=== PATIENT | female | born 1995 | race Caucasian/White ===

== ENCOUNTER 2018-03-25 18:02 | Emergency (ER) | payer BC ==
[2018-03-25] MEDS ORDERED: ONDANSETRON 4 MG/2 ML VIAL IVP STA (19:30)
[2018-03-25] MEDS ORDERED: SODIUM CHLORIDE 0.9% 1,000 ML IV STA (19:30)
[2018-03-25] MEDS ORDERED: MORPHINE SULFATE 4 MG/0.8 ML SYRINGE (INJ) IVP STA (19:30)
--- NOTE | 2018-03-25 19:33 | ED ---
General Adult HPI - General Chief complaint: Abdominal Pain Stated complaint: abdominal and back pain Time Seen by Provider: 03/25/18 19:23 Source: patient, RN notes reviewed Mode of arrival: ambulatory Limitations: no limitations - History of Present Illness Initial comments: Patient 23-year-old female presented to emergency room today with a chief complaint of abdominal pain starting approximately 10:30 this morning. Patient states she was at work pain started all of a sudden she felt she needed to go to the bathroom. States she had a normal bowel movement. Sensation is had some symptoms of nausea. States that the symptoms seem to come in waves. She' s had periods where she feels that she is come close to passing out due to the pain. She states it's in the upper and lower abdomen with some radiation to the lower back. Patient states never had similar symptoms in the past. She denies any other complaints. Patient denies any recent fever, chills, shortness of breath, chest pain, numbness or tingling, dysuria or hematuria, constipation or diarrhea, headaches or visual changes, or any other complaints. - Related Data Home Medications Medication Instructions Recorded Confirmed Acetaminophen/Pyrilam/Pamabrom 1 tab PO TID PRN 03/25/18 03/25/18 [Pamprin Multi-Symptom Tab] Previous Rx's Medication Instructions Recorded Nitrofurantoin Monohyd/M-Cryst 100 mg PO Q12HR #14 cap 03/25/18 [Macrobid] Allergies Allergy/AdvReac Type Severity Reaction Status Date / Time quetiapine [From Seroquel] Allergy Rash/Hives Verified 03/25/18 20:07 Penicillins AdvReac Unknown Verified 03/25/18 20:07 Review of Systems ROS Statement: Those systems with pertinent positive or pertinent negative responses have been documented in the HPI. ROS Other: All systems not noted in ROS Statement are negative. Past Medical History Past Medical History: No Reported History History of Any Multi-Drug Resistant Organisms: None Reported Past Surgical History: No Surgical Hx Reported Past Psychological History: Bipolar Smoking Status: Former smoker Past Alcohol Use History: Occasional Past Drug Use History: Marijuana General Exam - General Exam Comments Initial Comments: General: The patient is awake and alert, in no distress, and does not appear acutely ill. Eye: Pupils are equal, round and reactive to light, extra-ocular movements are intact. No nystagmus. There is normal conjunctiva bilaterally. No signs of icterus. Ears, nose, mouth and throat: There are moist mucous membranes and no oral lesions. Neck: The neck is supple, there is no tenderness or JVD. Cardiovascular: There is a regular rate and rhythm. No murmur, rub or gallop is appreciated. Respiratory: Lungs are clear to auscultation, respirations are non-labored, breath sounds are equal. No wheezes, stridor, rales, or rhonchi. Gastrointestinal: Abdomen soft on palpation. Patient does have tenderness greatest in both the left and right upper quadrant and epigastric areas. Mild tenderness in both lower quadrants. No CVA tenderness. No guarding. No rebound tenderness. Musculoskeletal: Normal ROM, no tenderness. Strength 5/5. Sensation intact. Pulses equal bilaterally 2+. Neurological: A&O x 3. CN II-XII intact, There are no obvious motor or sensory deficits. Coordination appears grossly intact. Speech is normal. Skin: Skin is warm and dry and no rashes or lesions are noted. Psychiatric: Cooperative, appropriate mood & affect, normal judgment. Limitations: no limitations Course Vital Signs 03/25/18 18:22 Temperature 97.5 F L Pulse Rate 93 Respiratory 20 Rate Blood Pressure 118/71 O2 Sat by Pulse 100 Oximetry Medical Decision Making - Medical Decision Making Case discussed in detail with attending physician Dr. Soto. Patient reexamined at this time shows no signs of distress resting comfortably. Patient 's labs been reviewed does show elevated white count 28,000. Patient did have ultrasound of the gallbladder which was negative. Patient's test was positive. Patient's urinalysis does show evidence for infection. Patient will be started on antibiotics. Patient at this time doing well. Abdomen soft on palpation. Patient feeling comfortable with discharge. Patient advised follow FAMILY physician tomorrow for repeat blood work. Patient will also have a repeat beta hCG in the next 2 days. Patient is advised close follow-up return here to the emergency room for any symptoms increase or worsen. She states understanding and is in agreement. - Lab Data Result diagrams: 03/25/18 19:46 03/25/18 19:46 Lab Results 03/25/18 03/25/18 03/25/18 Range/Units 19:46 19:46 19:46 WBC 28.8 H* (3.8-10.6) k/uL RBC 4.08 (3.80-5.40) m/uL Hgb 12.3 (11.4-16.0) gm/dL Hct 35.9 (34.0-46.0) % MCV 88.1 (80.0-100.0) fL MCH 30.1 (25.0-35.0) pg MCHC 34.2 (31.0-37.0) g/dL RDW 12.5 (11.5-15.5) % Plt Count 506 H (150-450) k/uL Neutrophils % (Manual) 90 % Lymphocytes % (Manual) 9 % Monocytes % (Manual) 1 % Neutrophils # (Manual) 25.92 H (1.3-7.7) k/uL Lymphocytes # (Manual) 2.59 (1.0-4.8) k/uL Monocytes # (Manual) 0.29 (0-1.0) k/uL Nucleated RBCs 0 (0-0) /100 WBC Manual Slide Review Performed RBC Morphology Normal Sodium 138 (137-145) mmol/L Potassium 4.6 (3.5-5.1) mmol/L Chloride 101 (98-107) mmol/L Carbon Dioxide 19 L (22-30) mmol/L Anion Gap 18 mmol/L BUN 15 (7-17) mg/dL Creatinine 0.55 (0.52-1.04) mg/dL Est GFR (CKD-EPI)AfAm >90 (>60 ml/min/1.73 sqM) Est GFR (CKD-EPI)NonAf >90 (>60 ml/min/1.73 sqM) Glucose 120 H (74-99) mg/dL Calcium 9.8 (8.4-10.2) mg/dL Total Bilirubin 0.5 (0.2-1.3) mg/dL AST 28 (14-36) U/L ALT 28 (9-52) U/L Alkaline Phosphatase 51 (38-126) U/L Total Protein 7.6 (6.3-8.2) g/dL Albumin 4.8 (3.5-5.0) g/dL Amylase 43 (30-110) U/L Lipase 40 (23-300) U/L HCG, Quant 87.2 mIU/mL Urine Color Urine Appearance (Clear) Urine pH (5.0-8.0) Ur Specific Ford (1.001-1.035) Urine Protein (Negative) Urine Glucose (UA) (Negative) Urine Ketones (Negative) Urine Blood (Negative) Urine Nitrite (Negative) Urine Bilirubin (Negative) Urine Urobilinogen (<2.0) mg/dL Ur Leukocyte Esterase (Negative) Urine RBC (0-5) /hpf Urine WBC (0-5) /hpf Ur Squamous Epith Cells (0-4) /hpf Urine Bacteria (None) /hpf Urine Mucus (None) /hpf Urine HCG, Qual (Not Detectd) 03/25/18 03/25/18 Range/Units 20:20 20:20 WBC (3.8-10.6) k/uL RBC (3.80-5.40) m/uL Hgb (11.4-16.0) gm/dL Hct (34.0-46.0) % MCV (80.0-100.0) fL MCH (25.0-35.0) pg MCHC (31.0-37.0) g/dL RDW (11.5-15.5) % Plt Count (150-450) k/uL Neutrophils % (Manual) % Lymphocytes % (Manual) % Monocytes % (Manual) % Neutrophils # (Manual) (1.3-7.7) k/uL Lymphocytes # (Manual) (1.0-4.8) k/uL Monocytes # (Manual) (0-1.0) k/uL Nucleated RBCs (0-0) /100 WBC Manual Slide Review RBC Morphology Sodium (137-145) mmol/L Potassium (3.5-5.1) mmol/L Chloride (98-107) mmol/L Carbon Dioxide (22-30) mmol/L Anion Gap mmol/L BUN (7-17) mg/dL Creatinine (0.52-1.04) mg/dL Est GFR (CKD-EPI)AfAm (>60 ml/min/1.73 sqM) Est GFR (CKD-EPI)NonAf (>60 ml/min/1.73 sqM) Glucose (74-99) mg/dL Calcium (8.4-10.2) mg/dL Total Bilirubin (0.2-1.3) mg/dL AST (14-36) U/L ALT (9-52) U/L Alkaline Phosphatase (38-126) U/L Total Protein (6.3-8.2) g/dL Albumin (3.5-5.0) g/dL Amylase (30-110) U/L Lipase (23-300) U/L HCG, Quant mIU/mL Urine Color Yellow Urine Appearance Cloudy H (Clear) Urine pH 6.0 (5.0-8.0) Ur Specific Ford 1.029 (1.001-1.035) Urine Protein 1+ H (Negative) Urine Glucose (UA) Negative (Negative) Urine Ketones Negative (Negative) Urine Blood Moderate H (Negative) Urine Nitrite Positive H (Negative) Urine Bilirubin Negative (Negative) Urine Urobilinogen <2.0 (<2.0) mg/dL Ur Leukocyte Esterase Small H (Negative) Urine RBC 2 (0-5) /hpf Urine WBC 18 H (0-5) /hpf Ur Squamous Epith Cells 33 H (0-4) /hpf Urine Bacteria Many H (None) /hpf Urine Mucus Many H (None) /hpf Urine HCG, Qual Detected (Not Detectd) Disposition Clinical Impression: UTI (urinary tract infection), Positive test, Abdominal pain Disposition: HOME SELF-CARE Condition: Good Instructions: Abdominal Pain (ED) Additional Instructions: Please use medication as discussed. Please follow-up with family doctor in the next tomorrow. Please return to emergency room if the symptoms increase or worsen or for any other concerns. Prescriptions: Nitrofurantoin Monohyd/M-Cryst [Macrobid] 100 mg PO Q12HR #14 cap Is patient prescribed a controlled substance at d/c from ED?: No Referrals: Sylvain Khoury MD [Primary Care Provider] - 1-2 days Time of Disposition: 23:31
[2018-03-25 20:08] LABS: ALT 28 U/L (9-52); AST 28 U/L (14-36); Albumin 4.8 g/dL (3.5-5.0); Alkaline Phosphatase 51 U/L (38-126); Amylase 43 U/L (30-110); Anion Gap 18 mmol/L; Blood Urea Nitrogen 15 mg/dL (7-17); Calcium 9.8 mg/dL (8.4-10.2); Carbon Dioxide 19 mmol/L (22-30); Chloride 101 mmol/L (98-107); Glucose 120 mg/dL (74-99); Lipase 40 U/L (23-300); Potassium 4.6 mmol/L (3.5-5.1); Sodium 138 mmol/L (137-145); Total Bilirubin 0.5 mg/dL (0.2-1.3); Total Protein 7.6 g/dL (6.3-8.2)
[2018-03-25 20:11] LABS: HCT 35.9 % (34.0-46.0); HGB 12.3 gm/dL (11.4-16.0); MCH 30.1 pg (25.0-35.0); MCHC 34.2 g/dL (31.0-37.0); MCV 88.1 fL (80.0-100.0); Mean Platelet Volume 7.6; Platelet Count 506 k/uL (150-450); RBC 4.08 m/uL (3.80-5.40); RDW 12.5 % (11.5-15.5)
[2018-03-25 20:15] LABS: WBC 28.8 k/uL (3.8-10.6)
[2018-03-25 20:34] LABS: Appearance,Urine Cloudy (Clear); Bacteria,Urine Many /hpf; Bilirubin,Urine Negative (Negative); Blood,Urine Moderate (Negative); Color,Urine Yellow; Glucose,Urine (UA) Negative (Negative); Ketones,Urine Negative (Negative); Leukocyte Esterase,Urine Small (Negative); Mucus,Urine Many /hpf; Nitrite,Urine Positive (Negative); Protein,Urine 1+ (Negative); RBC,Urine 2 /hpf (0-5); Specific Gravity,Urine 1.029 (1.001-1.035); Squamous Epithelial Cell,Urine 33 /hpf (0-4); Urobilinogen,Urine <2.0 mg/dL (<2.0); WBC,Urine 18 /hpf (0-5)
[2018-03-25 20:40] LABS: Lymphocytes # (M) 2.59 k/uL (1.0-4.8); Monocytes # (M) 0.29 k/uL (0-1.0); Neutrophils # (M) 25.92 k/uL (1.3-7.7); Neutrophils % (M) 90 %; Nucleated Red Blood Cells 0 /100 WBC (0-0); Total Cells Counted 100
--- NOTE | 2018-03-25 21:25 | US ---
EXAMINATION TYPE: Transabdominal DATE OF EXAM: 03/04/18 COMPARISON: NONE CLINICAL HISTORY: Pain. pain EXAM PERFORMED: Transabdominal (TA) Patient refused transvaginal exam. EXAM MEASUREMENTS: GESTATIONAL AGE / DATING Physician Established: Not yet established Dates by LMP: (1 weeks/0 days) EDC: 12/23/2018 Dates by First Scan: No previous this is first scan Dates by Current Scan for: (1 weeks/0 days) EDC: 12/23/2017 MATERNAL ANATOMY Uterus: 7.6 x 3.3 x 3.6 cm Post CDS / Adnexa: Excessive bowel seen Presence of free fluid: Yes GESTATION / SURVEY IUP: No IUP seen at this time Date of LMP: 03/18/2018 Beta HcG (if available): Detected No IUP seen at this time. IMPRESSION: There is a small amount of free fluid in the pelvis. No evidence of intrauterine gestational sac. No adnexal mass.
--- NOTE | 2018-03-25 23:21 | US ---
EXAMINATION TYPE: US gallbladder DATE OF EXAM: 03/25/2018 COMPARISON: NONE CLINICAL HISTORY: Pain. RUQ pain EXAM MEASUREMENTS: Liver Length: 16.9 cm Gallbladder Wall: 0.3 cm CBD: 0.5 cm Right Kidney: 12.0 x 3.9 x 4.8 cm Pancreas: Obscured by bowel gas Liver: wnl Gallbladder: wnl Evidence for sonographic Maxwell's sign: No CBD: wnl Right Kidney: No hydronephrosis or masses seen IMPRESSION: Normal right upper quadrant abdominal sonogram. No gallstones or dilated ducts.
[2018-03-26 00:04] VITALS: BP 133/80; PULSE 97; RESP 16; TEMP 98.3
== END 2018-03-26 00:04 | disposition home or self-care (01) ==
LOC: EC 18:02
DX: N39.0 Urinary tract infection, site not specified (principal); R10.12 Left upper quadrant pain; R10.13 Epigastric pain; R10.11 Right upper quadrant pain; R10.31 Right lower quadrant pain; R10.32 Left lower quadrant pain; Z32.01 Encounter for pregnancy test, result positive; Z87.891 Personal history of nicotine dependence; Z88.0 Allergy status to penicillin; Z88.8 Allergy status to other drugs, medicaments and biological substances
CPT/HCPCS: 36415; 80053; 82150; 83690; 85025; 81001; 81025; 84702; 76801; 76705; 99284; 96374; 96375; 96361; J2405; J2270

== ENCOUNTER 2018-03-28 18:49 | Emergency (ER) | payer BC ==
[2018-03-28] MEDS ORDERED: SODIUM CHLORIDE 0.9% 1,000 ML IV STA (19:26)
--- NOTE | 2018-03-28 20:16 | XR ---
History epigastric pain. Comparison none. Technique 2 views. FINDINGS: Bowel gas pattern is normal. There is no sign of intestinal obstruction or pneumoperitoneum. Fecal pa ttern is normal. There is no sign of a mass. Lung bases are clear. There are no pathologic calcificat ions. CONCLUSION: Nonacute abdomen.
--- NOTE | 2018-03-28 20:26 | ED ---
Abdominal Pain HPI - General Chief Complaint: Abdominal Pain Stated Complaint: Abd Pain Time Seen by Provider: 03/28/18 19:10 Source: patient Mode of arrival: ambulatory Limitations: no limitations - History of Present Illness Initial Comments: Patient is a 23-year-old female presenting for abdominal pain. She states that it is been going on for approximately the last week and is located in the epigastric as well as suprapubic region feels like a constant sensation, comes in waves and is better when she burps. She states that it feels like a charley horse in that she was seen here on March 25 when they did testing. She was tested positive for at that time and had a beta hCG. She states that she continues to have nausea but no vomiting or diarrhea or urinary complaints as well as vaginal bleeding in that she saw her family doctor today when they repeated a beta hCG. The doctor told the patient that the beta hCG was down trending but wanted to hurt her evaluated for possible ectopic. . - Related Data Home Medications Medication Instructions Recorded Confirmed Acetaminophen Tab [Tylenol Tab] 500 - 1,000 mg PO Q6HR PRN 03/28/18 03/28/18 Simethicone [Gas-X] 125 mg PO ONCE PRN 03/28/18 03/28/18 Previous Rx's Medication Instructions Recorded Nitrofurantoin Monohyd/M-Cryst 100 mg PO Q12HR #14 cap 03/25/18 [Macrobid] Allergies Allergy/AdvReac Type Severity Reaction Status Date / Time quetiapine [From Seroquel] Allergy Rash/Hives Verified 03/28/18 19:32 Penicillins AdvReac Unknown Verified 03/28/18 19:32 Review of Systems ROS Statement: Those systems with pertinent positive or pertinent negative responses have been documented in the HPI. Constitutional: Negative for chills, fatigue and fever. HENT: Negative for congestion. Respiratory: Negative for chest tightness, shortness of breath and wheezing. Cardiovascular: Negative for chest pain and palpitations. Gastrointestinal: Positive for abdominal pain. Negative for abdominal distention , diarrhea, and vomiting. Positive for nausea Genitourinary: Negative for dysuria. Negative for vaginal bleeding Musculoskeletal: Negative for back pain, neck pain and neck stiffness. Skin: Negative for color change. Neurological: Negative for dizziness, speech difficulty, weakness and light- headedness. Psychiatric/Behavioral: Negative for agitation and confusion. The patient is not nervous/anxious. ROS Other: All systems not noted in ROS Statement are negative. Past Medical History Past Medical History: No Reported History History of Any Multi-Drug Resistant Organisms: None Reported Past Surgical History: No Surgical Hx Reported Past Psychological History: Bipolar Smoking Status: Former smoker Past Alcohol Use History: Occasional Past Drug Use History: Marijuana General Exam - General Exam Comments Initial Comments: Physical Exam Constitutional: Pt is oriented to person, place, and time. Pt appears well- developed and well-nourished. No distress. HENT: Head: Normocephalic and atraumatic. Eyes: EOM are normal. Neck: Normal range of motion. Neck supple. Cardiovascular: Normal rate, regular rhythm, S1 normal, S2 normal and normal heart sounds. Exam reveals no gallop and no friction rub. No murmur heard. Pulmonary/Chest: Effort normal and breath sounds normal. No tachypnea and no bradypnea. No respiratory distress. No wheezes or rales noted. Abdominal: Soft. Bowel sounds are normal. Pt exhibits no shifting dullness, no distension, no pulsatile liver, no fluid wave, no abdominal bruit and no ascites. There is no tenderness. There is no rigidity, no rebound, no guarding, no tenderness at McBurney's point and negative Maxwell's sign. Musculoskeletal: Normal range of motion. Neurological: Pt is alert and oriented to person, place, and time. No cranial nerve deficit. Skin: Skin is warm and dry. No rash noted. Pt is not diaphoretic. No erythema. No pallor. Psychiatric: Pt has a normal mood and affect. Pt behavior is normal. Thought content normal. Limitations: no limitations Course Vital Signs 03/28/18 03/28/18 18:53 20:41 Temperature 99.3 F 99.2 F Pulse Rate 100 98 Respiratory 16 18 Rate Blood Pressure 131/78 130/80 O2 Sat by Pulse 100 98 Oximetry Medical Decision Making - Medical Decision Making Extensive discussion was had with the patient and the mother in multiple occasions during her stay. Initially, the patient stated that she did not want to have blood work as she has a phobia to needle. It was then advised that she should at least have a pelvic exam to evaluate for adnexal tenderness. However , she declined as she did not want a male provider performing exam. She was advised that unfortunately there were no female providers that could perform this exam at the moment. However, she was agreeable to do a KUB which showed no evidence of acute pathology. In the end, the patient declined blood work as well as pelvic exam and it was explained to the patient and her mother that emergent pathology such as ectopic or torsion of the ovaries could not be excluded. Patient and mother expressed understanding that foregoing treatment and leaving AMA could result in or disability. Patient was again advised to follow-up with OB doctors to have serial beta hCG. They were agreeable to plan Disposition Clinical Impression: Abdominal pain Disposition: Left Against Medical Advice Condition: Fair Instructions: Abdominal Pain in (ED) Is patient prescribed a controlled substance at d/c from ED?: No Referrals: Sylvain Khoury MD [Primary Care Provider] - 1-2 days Lore Pardo DO [Doctor of Osteopathic Medicine] - 1-2 days Time of Disposition: 20:26
[2018-03-28 20:42] VITALS: BP 130/80; PULSE 98; RESP 18; TEMP 99.2
== END 2018-03-28 20:41 | disposition left against medical advice (07) ==
LOC: EC 18:49
DX: R10.9 Unspecified abdominal pain (principal); R11.0 Nausea; Z87.891 Personal history of nicotine dependence; Z88.0 Allergy status to penicillin; Z88.8 Allergy status to other drugs, medicaments and biological substances
CPT/HCPCS: 74018; 99284

== ENCOUNTER 2018-12-07 22:11 | Emergency (ER) | payer BC ==
[2018-12-07 22:35] VITALS: RESP 16
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
[2018-12-07 23:48] LABS: Amphetamine Screen,Urine Not Detected (NotDetected); Barbiturate Screen,Urine Not Detected (NotDetected); Benzodiazepines Screen,Urine Not Detected (NotDetected); Cocaine Screen,Urine Not Detected (NotDetected); Methadone Screen, Urine Not Detected (NotDetected); Opiate Screen,Urine Not Detected (NotDetected); Oxycodone Screen, Urine Not Detected (NotDetected); Phencyclidine Screen,Urine Not Detected (NotDetected); Tricyclic Antidepressant,Urine Not Detected (NotDetected); Urn Cannabinoid Scrn Detected (NotDetected)
[2018-12-08 02:03] VITALS: BP 120/73; PULSE 60; TEMP 97.8
== END 2018-12-08 02:03 | disposition home or self-care (01) ==
LOC: EC 22:11
DX: S51.811A Laceration without foreign body of right forearm, initial encounter (principal); F32.9 Major depressive disorder, single episode, unspecified; Z87.891 Personal history of nicotine dependence; Z79.3 Long term (current) use of hormonal contraceptives; Z79.899 Other long term (current) drug therapy; Z88.0 Allergy status to penicillin; Z88.8 Allergy status to other drugs, medicaments and biological substances; X78.8XXA Intentional self-harm by other sharp object, initial encounter
CPT/HCPCS: 80306; 81025; 82075; 99284

== ENCOUNTER → 2019-03-03 | Outpatient (CLI) | payer BC ==
--- NOTE | 2019-03-03 12:53 | US ---
EXAMINATION TYPE: US abdomen complete DATE OF EXAM: 03/03/2019 COMPARISON: US 03/25/2018 CLINICAL HISTORY: R11.2 NAUSEA AND VOMITING. Diarrhea and vomiting. Difficult exam due to overlying b owel gas EXAM MEASUREMENTS: Liver Length: 14.0 cm Gallbladder Wall: 0.2 cm CBD: 0.4 cm Spleen: 9.3 cm Right Kidney: 12.7 x 4.8 x 6.4 cm Left Kidney: 1.7 x 5.9 x 4.6 cm Pancreas: Obscured by bowel gas Liver: wnl Gallbladder: wnl Evidence for sonographic Maxwell's sign: No CBD: wnl Spleen: wnl Right Kidney: No hydronephrosis or masses seen Left Kidney: No hydronephrosis or masses seen Upper IVC: wnl Abd Aorta: Proximal portion obscured by bowel gas, visualized portions wnl The liver is homogenous. The intrahepatic portion of the IVC and proximal abdominal aorta are within normal limits. There is no evidence of cholelithiasis. Common bile duct is unremarkable. The splee n is unremarkable. Kidneys are symmetric and free of hydronephrosis. No renal lesions are seen. IMPRESSION: 1. No acute process.
== END | disposition home or self-care (01) ==
LOC: RADUSWWP 11:38
PROVIDERS: ATTEND Physician Assistant
DX: R11.2 Nausea with vomiting, unspecified (principal)
CPT/HCPCS: 76700

== ENCOUNTER 2019-04-29 18:27 | Emergency (ER) | payer BC ==
[2019-04-29 19:42] LABS: Appearance,Urine Clear (Clear); Bilirubin,Urine Negative (Negative); Blood,Urine Negative (Negative); Color,Urine Light Yellow; Glucose,Urine (UA) Negative (Negative); Ketones,Urine Negative (Negative); Leukocyte Esterase,Urine Negative (Negative); Nitrite,Urine Negative (Negative); Protein,Urine Negative (Negative); Specific Gravity,Urine 1.019 (1.001-1.035); Urobilinogen,Urine <2.0 mg/dL (<2.0)
[2019-04-29] MEDS ORDERED: MORPHINE SULFATE 4 MG/ML SYRINGE IVP STA (20:53)
[2019-04-29] MEDS ORDERED: ONDANSETRON 4 MG/2 ML VIAL IVP STA ×2 (20:53→21:29)
[2019-04-29] MEDS ORDERED: SODIUM CHLORIDE 0.9% 1,000 ML IV ONE (20:53)
[2019-04-29 21:03] LABS: Basophils # (A) 0.1 k/uL (0-0.2); Basophils % (A) 1 %; Eosinophils # (A) 0.3 k/uL (0-0.7); Eosinophils % (A) 3 %; HCT 39.5 % (34.0-46.0); HGB 13.1 gm/dL (11.4-16.0); Lymphocytes # (A) 4.1 k/uL (1.0-4.8); Lymphocytes % (A) 34 %; MCH 29.3 pg (25.0-35.0); MCHC 33.1 g/dL (31.0-37.0); MCV 88.6 fL (80.0-100.0); Mean Platelet Volume 7.3; Monocytes # (A) 0.7 k/uL (0-1.0); Monocytes % (A) 6 %; Neutrophils # (A) 6.6 k/uL (1.3-7.7); Neutrophils % (A) 56 %; Platelet Count 390 k/uL (150-450); RBC 4.46 m/uL (3.80-5.40); RDW 13.5 % (11.5-15.5); WBC 11.9 k/uL (3.8-10.6)
[2019-04-29 21:13] LABS: ALT 13 U/L (9-52); AST 21 U/L (14-36); Alkaline Phosphatase 46 U/L (38-126); Amylase 54 U/L (30-110); Anion Gap 14 mmol/L; Blood Urea Nitrogen 14 mg/dL (7-17); Calcium 9.9 mg/dL (8.4-10.2); Carbon Dioxide 21 mmol/L (22-30); Chloride 104 mmol/L (98-107); Glucose 78 mg/dL (74-99); Lipase 65 U/L (23-300); Potassium 4.5 mmol/L (3.5-5.1); Sodium 139 mmol/L (137-145); Total Bilirubin 0.4 mg/dL (0.2-1.3); Total Protein 8.3 g/dL (6.3-8.2)
--- NOTE | 2019-04-29 22:41 | ED ---
Abdominal Pain HPI - General Chief Complaint: Abdominal Pain Stated Complaint: Poss tubal Time Seen by Provider: 04/29/19 20:36 Source: patient Mode of arrival: ambulatory Limitations: no limitations - History of Present Illness Initial Comments: 24-year-old female patient presents to the emergency department today for evaluation of lower abdominal cramping radiating to both hips into her back. Patient states that this started about a week ago and has been progressively worsening. Patient denies any abnormal vaginal bleeding or discharge with this. States her last period was 02/27/2019. Patient states she has had negative test at home. States she does have a history of ectopic and states this feels similar. She denies any nausea or vomiting. Denies any constipation or diarrhea. She denies any fever or chills. She denies any hematuria, dysuria, urinary urgency, urinary frequency. Denies any history of abdominal surgery. Patient denies any recent rash, shortness breath, chest pain, numbness, tingling, dizziness, weakness, headache, visual changes, or any other complaints. - Related Data Home Medications Medication Instructions Recorded Confirmed Sertraline [Zoloft] 75 mg PO DAILY 12/07/18 04/29/19 Spironolactone 25 mg PO DAILY 04/29/19 04/29/19 l-Norgest/E.estradiol-E.estrad 1 tab PO DAILY 04/29/19 04/29/19 [Seasonique 0.15-0.03-0.01 Tab] Allergies Allergy/AdvReac Type Severity Reaction Status Date / Time Penicillins Allergy Rash/Hives Verified 04/29/19 20:45 quetiapine [From Seroquel] Allergy Rash/Hives Verified 04/29/19 20:45 Review of Systems ROS Statement: Those systems with pertinent positive or pertinent negative responses have been documented in the HPI. ROS Other: All systems not noted in ROS Statement are negative. Past Medical History Past Medical History: No Reported History Additional Past Medical History / Comment(s): PCOS History of Any Multi-Drug Resistant Organisms: None Reported Past Surgical History: No Surgical Hx Reported Additional Past Surgical History / Comment(s): nasal Past Psychological History: Bipolar Smoking Status: Former smoker Past Alcohol Use History: Occasional Past Drug Use History: None Reported General Exam Limitations: no limitations General appearance: alert, in no apparent distress, other (Physical well- developed, well-nourished adult female patient in no acute distress. Vital si gns upon presentation are temperature 97.2F, pulse 62, respirations 15, blood pressure 119/78, pulse ox 100% on room air.) Eye exam: Present: normal appearance, PERRL, EOMI. Absent: scleral icterus, conjunctival injection, periorbital swelling ENT exam: Present: normal exam, normal oropharynx, mucous membranes moist Respiratory exam: Present: normal lung sounds bilaterally. Absent: respiratory distress, wheezes, rales, rhonchi, stridor Cardiovascular Exam: Present: regular rate, normal rhythm, normal heart sounds. Absent: systolic murmur, diastolic murmur, rubs, gallop, clicks GI/Abdominal exam: Present: soft, tenderness (Right lower quadrant, suprapubic, left lower quadrant tenderness), normal bowel sounds. Absent: distended, guarding, rebound, rigid Back exam: Present: normal inspection. Absent: CVA tenderness (R), CVA tenderness (L) Neurological exam: Present: alert, oriented X3, CN II-XII intact Psychiatric exam: Present: normal affect, normal mood Skin exam: Present: warm, dry, intact, normal color. Absent: rash Course Vital Signs 04/29/19 04/29/19 04/30/19 19:18 23:54 00:57 Temperature 97.2 F L 98 F Pulse Rate 62 66 77 Respiratory 15 16 16 Rate Blood Pressure 119/78 110/74 110/74 O2 Sat by Pulse 100 99 96 Oximetry Medical Decision Making - Medical Decision Making 24-year-old female patient presented to the emergency department today for evaluation of lower abdominal pain. Physical examination revealed lower abdomi nal tenderness. Labs reviewed and were unremarkable. Patient's hCG is negative. No evidence of urinary tract infection. Ultrasound was obtained and showed no abnormalities however the left ovary was instructed by bowel gas. Upon reevaluation patient does report improvement of symptoms. Abdomen is now soft nontender. She is afebrile. Vital signs are stable. She is instructed to follow-up with her primary care physician and cyber legal advisor for further evaluation. Return parameters were discussed in detail. She verbalizes understanding and agrees with this plan. - Lab Data Result diagrams: 04/29/19 20:46 04/29/19 20:46 Lab Results 04/29/19 04/29/1919 Range/Units 19:23 19:23 20:46 WBC (3.8-10.6) k/uL RBC (3.80-5.40) m/uL Hgb (11.4-16.0) gm/dL Hct (34.0-46.0) % MCV (80.0-100.0) fL MCH (25.0-35.0) pg MCHC (31.0-37.0) g/dL RDW (11.5-15.5) % Plt Count (150-450) k/uL Neutrophils % % Lymphocytes % % Monocytes % % Eosinophils % % Basophils % % Neutrophils # (1.3-7.7) k/uL Lymphocytes # (1.0-4.8) k/uL Monocytes # (0-1.0) k/uL Eosinophils # (0-0.7) k/uL Basophils # (0-0.2) k/uL Sodium 139 (137-145) mmol/L Potassium 4.5 (3.5-5.1) mmol/L Chloride 104 (98-107) mmol/L Carbon Dioxide 21 L (22-30) mmol/L Anion Gap 14 mmol/L BUN 14 (7-17) mg/dL Creatinine 0.56 (0.52-1.04) mg/dL Est GFR (CKD-EPI)AfAm >90 (>60 ml/min/1.73 sqM) Est GFR (CKD-EPI)NonAf >90 (>60 ml/min/1.73 sqM) Glucose 78 (74-99) mg/dL Calcium 9.9 (8.4-10.2) mg/dL Total Bilirubin 0.4 (0.2-1.3) mg/dL AST 21 (14-36) U/L ALT 13 (9-52) U/L Alkaline Phosphatase 46 (38-126) U/L Total Protein 8.3 H (6.3-8.2) g/dL Albumin 5.0 (3.5-5.0) g/dL Amylase 54 (30-110) U/L Lipase 65 (23-300) U/L Urine Color Light Yellow Urine Appearance Clear (Clear) Urine pH 6.0 (5.0-8.0) Ur Specific [place] 1.019 (1.001-1.035) Urine Protein Negative (Negative) Urine Glucose (UA) Negative (Negative) Urine Ketones Negative (Negative) Urine Blood Negative (Negative) Urine Nitrite Negative (Negative) Urine Bilirubin Negative (Negative) Urine Urobilinogen <2.0 (<2.0) mg/dL Ur Leukocyte Esterase Negative (Negative) Urine HCG, Qual Not Detected (Not Detectd) 04/29/19 Range/Units 20:46 WBC 11.9 H (3.8-10.6) k/uL RBC 4.46 (3.80-5.40) m/uL Hgb 13.1 (11.4-16.0) gm/dL Hct 39.5 (34.0-46.0) % MCV 88.6 (80.0-100.0) fL MCH 29.3 (25.0-35.0) pg MCHC 33.1 (31.0-37.0) g/dL RDW 13.5 (11.5-15.5) % Plt Count 390 (150-450) k/uL Neutrophils % 56 % Lymphocytes % 34 % Monocytes % 6 % Eosinophils % 3 % Basophils % 1 % Neutrophils # 6.6 (1.3-7.7) k/uL Lymphocytes # 4.1 (1.0-4.8) k/uL Monocytes # 0.7 (0-1.0) k/uL Eosinophils # 0.3 (0-0.7) k/uL Basophils # 0.1 (0-0.2) k/uL Sodium (137-145) mmol/L Potassium (3.5-5.1) mmol/L Chloride (98-107) mmol/L Carbon Dioxide (22-30) mmol/L Anion Gap mmol/L BUN (7-17) mg/dL Creatinine (0.52-1.04) mg/dL Est GFR (CKD-EPI)AfAm (>60 ml/min/1.73 sqM) Est GFR (CKD-EPI)NonAf (>60 ml/min/1.73 sqM) Glucose (74-99) mg/dL Calcium (8.4-10.2) mg/dL Total Bilirubin (0.2-1.3) mg/dL AST (14-36) U/L ALT (9-52) U/L Alkaline Phosphatase (38-126) U/L Total Protein (6.3-8.2) g/dL Albumin (3.5-5.0) g/dL Amylase (30-110) U/L Lipase (23-300) U/L Urine Color Urine Appearance (Clear) Urine pH (5.0-8.0) Ur Specific [place] (1.001-1.035) Urine Protein (Negative) Urine Glucose (UA) (Negative) Urine Ketones (Negative) Urine Blood (Negative) Urine Nitrite (Negative) Urine Bilirubin (Negative) Urine Urobilinogen (<2.0) mg/dL Ur Leukocyte Esterase (Negative) Urine HCG, Qual (Not Detectd) - Radiology Data Radiology results: report reviewed, image reviewed Transvaginal ultrasound was obtained. Report reviewed in its entirety. Impression by Dr. Montgomery shows no intrauterine identified. No definite evidence of extrauterine , but the left adnexa this due to bowel gas. Disposition Clinical Impression: Pelvic pain Disposition: HOME SELF-CARE Condition: Good Instructions (If sedation given, give patient instructions): Pelvic Pain in Women (ED) Additional Instructions: Follow-up with your cyber legal advisor primary care physician for recheck in 1-2 days. Take medication as directed. Return to the emergency department immediately for any new, worsening, or concerning symptoms. Is patient prescribed a controlled substance at d/c from ED?: No Referrals: Sylvain Khoury MD [Primary Care Provider] - 1-2 days Time of Disposition: 00:23
[2019-04-29 23:55] VITALS: BP 110/74; RESP 16
--- NOTE | 2019-04-30 | US ---
EXAM: US Pelvis, Transvaginal CLINICAL HISTORY: ITS.REASON US Reason: Pain TECHNIQUE: Real-time transvaginal pelvic ultrasound (complete) with image documentation. Transvaginal imaging was used for better evaluation of the endometrium and adnexa. COMPARISON: No pertinent priors FINDINGS: Uterus/cervix: Uterus measures 5.8 x 2.5 x 3.7 cm. Endometrium measures 3.5 mm in thickness. No intrauterine identified. No myometrial mass. Right ovary: Right ovary measures 1.9 x 3.1 x 2.0 cm. Multiple follicles in the right ovary. Normal color Doppler flow to the right ovary. Normal blood flow. Left ovary: Left ovary not visualized due to overlying bowel gas. Free fluid: No free fluid. IMPRESSION: No intrauterine identified. No definite evidence of extrauterine , but the left adnexa is obscured by bowel gas. Recommend serial beta-hCG measurements and short-term follow-up exam if clinically indicated.
[2019-04-30] MEDS ORDERED: ACET/COD 300 MG/30 MG STARTER PACK 6 TAB BTL PO STA (00:23)
[2019-04-30 00:57] VITALS: PULSE 77; TEMP 98
== END 2019-04-30 01:02 | disposition home or self-care (01) ==
LOC: EC 18:27
DX: R10.2 Pelvic and perineal pain (principal); F31.9 Bipolar disorder, unspecified; Z32.02 Encounter for pregnancy test, result negative; Z87.59 Personal history of other complications of pregnancy, childbirth and the puerperium; Z87.891 Personal history of nicotine dependence; Z79.3 Long term (current) use of hormonal contraceptives; Z79.899 Other long term (current) drug therapy
CPT/HCPCS: 36415; 80053; 82150; 83690; 85025; 81003; 81025; 76801; 76817; 99284; 96374; 96361 ×2; J2405

== ENCOUNTER 2020-02-02 14:37 | Emergency (ER) | payer BC ==
[2020-02-02] MEDS ORDERED: SODIUM CHLORIDE 0.9% 1,000 ML IV ONE ×2 (15:10)
--- NOTE | 2020-02-02 15:53 | ED ---
Female Urogenital HPI - General Chief complaint: Vaginal Bleeding Stated complaint: 6 weeks preg/bleeding Time Seen by Provider: 02/02/20 15:07 Source: patient, RN notes reviewed, old records reviewed Mode of arrival: ambulatory Limitations: no limitations - History of Present Illness Initial comments: Patient is a 24-year-old female who presents emergency Department stay of abnormal bleeding. She reports she had 2 positive test 2 weeks ago and her last menstrual period was December 06. Patient states that she started have some abnormal bleeding today and went to clinic. At that time patient's urine test was found to be negative. Patient states that she's had lower abdominal cramping but denies any specific pain. Patient is a . She's had a previous ectopic and one previous miscarriage. Last Menstrual Period: 12/18/19 - Related Data Home Medications Medication Instructions Recorded Confirmed Sertraline [Zoloft] 75 mg PO DAILY 12/07/18 04/29/19 Spironolactone 25 mg PO DAILY 04/29/19 04/29/19 l-Norgest/E.estradiol-E.estrad 1 tab PO DAILY 04/29/19 04/29/19 [Seasonique 0.15-0.03-0.01 Tab] Allergies Allergy/AdvReac Type Severity Reaction Status Date / Time Penicillins Allergy Rash/Hives Verified 02/02/20 14:44 quetiapine [From Seroquel] Allergy Rash/Hives Verified 02/02/20 14:44 Review of Systems ROS Statement: Those systems with pertinent positive or pertinent negative responses have been documented in the HPI. ROS Other: All systems not noted in ROS Statement are negative. Past Medical History Past Medical History: No Reported History Additional Past Medical History / Comment(s): PCOS History of Any Multi-Drug Resistant Organisms: None Reported Past Surgical History: No Surgical Hx Reported Additional Past Surgical History / Comment(s): nasal Past Psychological History: Bipolar Smoking Status: Former smoker Past Alcohol Use History: Occasional Past Drug Use History: None Reported General Exam Limitations: no limitations General appearance: alert, in no apparent distress Head exam: Present: atraumatic, normocephalic, normal inspection Eye exam: Present: normal appearance, PERRL, EOMI. Absent: scleral icterus, conjunctival injection, periorbital swelling ENT exam: Present: normal exam, mucous membranes moist Neck exam: Present: normal inspection. Absent: tenderness, meningismus, lymphadenopathy Respiratory exam: Present: normal lung sounds bilaterally. Absent: respiratory distress, wheezes, rales, rhonchi, stridor Cardiovascular Exam: Present: regular rate, normal rhythm, normal heart sounds. Absent: systolic murmur, diastolic murmur, rubs, gallop, clicks GI/Abdominal exam: Present: soft, normal bowel sounds. Absent: distended, tenderness, guarding, rebound, rigid Extremities exam: Present: normal inspection, full ROM, normal capillary refill. Absent: tenderness, pedal edema, joint swelling, calf tenderness Back exam: Present: normal inspection Neurological exam: Present: alert, oriented X3, CN II-XII intact Psychiatric exam: Present: normal affect, normal mood Course Vital Signs 02/02/20 16:32 Temperature 98.3 F Pulse Rate 79 Respiratory 18 Rate Blood Pressure 118/77 O2 Sat by Pulse 98 Oximetry Medical Decision Making - Medical Decision Making 24 year old female with CC of vaginal bleeding for 2 days, with history of positive test. Patient serum hcg is 24. Patient is Rh positive. Patient informed that hcg at 24, patient likely miscarried. Discussed follow up for repeat hcg in 2 days. Patient has no tenderness, and declined pelvic exam. - Lab Data Result diagrams: 02/02/20 15:56 Lab Results 02/02/20 02/02/20 02/02/20 Range/Units 15:56 15:56 15:56 WBC 12.3 H (3.8-10.6) k/uL RBC 4.48 (3.80-5.40) m/uL Hgb 13.5 (11.4-16.0) gm/dL Hct 40.4 (34.0-46.0) % MCV 90.0 (80.0-100.0) fL MCH 30.1 (25.0-35.0) pg MCHC 33.4 (31.0-37.0) g/dL RDW 11.9 (11.5-15.5) % Plt Count 364 (150-450) k/uL Neutrophils % 61 % Lymphocytes % 30 % Monocytes % 6 % Eosinophils % 2 % Basophils % 0 % Neutrophils # 7.4 (1.3-7.7) k/uL Lymphocytes # 3.6 (1.0-4.8) k/uL Monocytes # 0.7 (0-1.0) k/uL Eosinophils # 0.2 (0-0.7) k/uL Basophils # 0.0 (0-0.2) k/uL HCG, Quant mIU/mL Urine Color Urine Appearance (Clear) Urine pH (5.0-8.0) Ur Specific [place] (1.001-1.035) Urine Protein (Negative) Urine Glucose (UA) (Negative) Urine Ketones (Negative) Urine Blood (Negative) Urine Nitrite (Negative) Urine Bilirubin (Negative) Urine Urobilinogen (<2.0) mg/dL Ur Leukocyte Esterase (Negative) Urine HCG, Qual Not Detected (Not Detectd) Blood Type AB Positive Blood Type Recheck No Previous Record Bld Type Recheck Status [facility] ONLY 02/02/20 02/02/20 Range/Units 15:56 15:56 WBC (3.8-10.6) k/uL RBC (3.80-5.40) m/uL Hgb (11.4-16.0) gm/dL Hct (34.0-46.0) % MCV (80.0-100.0) fL MCH (25.0-35.0) pg MCHC (31.0-37.0) g/dL RDW (11.5-15.5) % Plt Count (150-450) k/uL Neutrophils % % Lymphocytes % % Monocytes % % Eosinophils % % Basophils % % Neutrophils # (1.3-7.7) k/uL Lymphocytes # (1.0-4.8) k/uL Monocytes # (0-1.0) k/uL Eosinophils # (0-0.7) k/uL Basophils # (0-0.2) k/uL HCG, Quant 24.6 mIU/mL Urine Color Yellow Urine Appearance Clear (Clear) Urine pH 7.0 (5.0-8.0) Ur Specific [place] 1.017 (1.001-1.035) Urine Protein Negative (Negative) Urine Glucose (UA) Negative (Negative) Urine Ketones Negative (Negative) Urine Blood Negative (Negative) Urine Nitrite Negative (Negative) Urine Bilirubin Negative (Negative) Urine Urobilinogen <2.0 (<2.0) mg/dL Ur Leukocyte Esterase Negative (Negative) Urine HCG, Qual (Not Detectd) Blood Type Blood Type Recheck Bld Type Recheck Status Disposition Clinical Impression: Threatened miscarriage Disposition: HOME SELF-CARE Condition: Good Instructions (If sedation given, give patient instructions): Threatened Miscarriage (ED) Additional Instructions: Patient advised to repeat hCG level and blood work in 2 days. Please follow up with family doctor if symptoms have not improved over the next two days. Please return to the emergency room if your symptoms increase or worsen or for any other concerns. Is patient prescribed a controlled substance at d/c from ED?: No Referrals: Sylvain Khoury MD [Primary Care Provider] - 1-2 days Rosa Elena Somers MD [STAFF PHYSICIAN] - 1-2 days Time of Disposition: 17:12
[2020-02-02 16:15] LABS: Basophils % (A) 0 %; Eosinophils # (A) 0.2 k/uL (0-0.7); Eosinophils % (A) 2 %; HCT 40.4 % (34.0-46.0); HGB 13.5 gm/dL (11.4-16.0); Lymphocytes # (A) 3.6 k/uL (1.0-4.8); Lymphocytes % (A) 30 %; MCH 30.1 pg (25.0-35.0); MCHC 33.4 g/dL (31.0-37.0); Mean Platelet Volume 7.7; Monocytes # (A) 0.7 k/uL (0-1.0); Monocytes % (A) 6 %; Neutrophils # (A) 7.4 k/uL (1.3-7.7); Neutrophils % (A) 61 %; Platelet Count 364 k/uL (150-450); RBC 4.48 m/uL (3.80-5.40); RDW 11.9 % (11.5-15.5); WBC 12.3 k/uL (3.8-10.6)
[2020-02-02 16:16] LABS: Appearance,Urine Clear (Clear); Bilirubin,Urine Negative (Negative); Blood,Urine Negative (Negative); Color,Urine Yellow; Glucose,Urine (UA) Negative (Negative); Ketones,Urine Negative (Negative); Leukocyte Esterase,Urine Negative (Negative); Nitrite,Urine Negative (Negative); Protein,Urine Negative (Negative); Specific Gravity,Urine 1.017 (1.001-1.035); Urobilinogen,Urine <2.0 mg/dL (<2.0)
[2020-02-02 16:32] VITALS: BP 118/77; PULSE 79; RESP 18; TEMP 98.3
[2020-02-04 15:13] LABS: C. trachomatis,PCR Negative (Neg,Equiv); Chlamydia trachomatis Source Urine
[2020-02-04 15:14] LABS: N. gonorrhoeae,PCR Negative (Neg,Equiv); Neisseria Source Urine
== END 2020-02-02 17:23 | disposition home or self-care (01) ==
LOC: EC 14:37 → SUPCPDRO 14:37 → EC 17:23
DX: O20.0 Threatened abortion (principal); Z67.30 Type AB blood, Rh positive; O99.341 Other mental disorders complicating pregnancy, first trimester; F31.9 Bipolar disorder, unspecified; Z87.891 Personal history of nicotine dependence; Z88.0 Allergy status to penicillin; Z88.8 Allergy status to other drugs, medicaments and biological substances; Z79.899 Other long term (current) drug therapy; Z87.59 Personal history of other complications of pregnancy, childbirth and the puerperium; Z3A.01 Less than 8 weeks gestation of pregnancy; Z53.29 Procedure and treatment not carried out because of patient's decision for other reasons; Z53.8 Procedure and treatment not carried out for other reasons
CPT/HCPCS: 36415; 81003; 81025; 84702; 85025; 86900; 86901; 87491; 87591; 99284

== ENCOUNTER → 2020-02-04 | Outpatient (CLI) | payer BC ==
--- NOTE | 2020-02-05 07:15 | US ---
EXAMINATION TYPE: Transabdominal DATE OF EXAM: 02/04/2020 4:54 PM COMPARISON: NONE CLINICAL HISTORY: O03.9 Complete or unspecified spontaneous . Pt states recent vaginal bleedi ng, clots started today EXAM PERFORMED: Transvaginal (TV) and Transabdominal (TA) EXAM MEASUREMENTS: GESTATIONAL AGE / DATING Physician Established: Not yet established Dates by LMP: (7 weeks/2 days) EDC: 09/20/20 Dates by First Scan: No prior Dates by Current Scan for: No IUP seen at this time Endo thickness= 0.6 cm MATERNAL ANATOMY Uterus: 7.5 x 2.9 x 3.4 cm Right Ovary: Unable to visualize due to overlying bowel gas and pt very tense during transvaginal, unable to apply probe pressure Left Ovary: Unable to visualize due to overlying bowel gas and pt very tense during transvaginal, u nable to apply probe pressure Post CDS / Adnexa: wnl Presence of free fluid: No GESTATION / SURVEY IUP: No IUP seen at this time Date of LMP: 12/15/2019 Beta HcG (if available): Not available at this time No evidence of IUP/ Results called to Uday FISCHER at 's office at time of exam Endometrial thickness measures 7 mm IMPRESSION: No sonographic evidence of intrauterine . Endometrial thickness measures 7 mm an d is within normal limits. In the setting of a declining beta hCG and vaginal bleeding findings would be compatible with spontaneous . If there is an increasing beta hCG ectopic should be exclud ed as the ovaries are unable to be visualized.
== END | disposition home or self-care (01) ==
LOC: RADUSWWP 16:25
PROVIDERS: ATTEND Family Medicine
DX: O03.9 Complete or unspecified spontaneous abortion without complication (principal)
CPT/HCPCS: 76801; 76817

== ENCOUNTER 2022-05-25 16:48 | Emergency (ER) | payer BC ==
--- NOTE | 2022-05-25 19:17 | ED ---
ENT HPI - General Chief complaint: ENT Stated complaint: SOB Time Seen by Provider: 05/25/22 17:40 Source: patient, family, RN notes reviewed Mode of arrival: ambulatory Limitations: no limitations - History of Present Illness Initial comments: This is a 27-year-old female who presents to the emergency department for pain and swelling in the throat. This started 4 days ago and has continued to progress. She tested negative for strep throat yesterday and was placed on a course of doxycycline. Prior to that, she was on a three-day course of dexameth asone 4 mg. She notes that 1 to 2 days before this began, she and her had oral sex. They both have known herpes. She has never had an oral outbreak before. She does have Valtrex for when she has a flareup, however these pills are too large for her to take with the swelling. The pain and swelling is also in her neck, and she has pain when talking or swallowing. Denies any difficulty breathing. Denies any fevers, chills, cough, dyspnea, chest pain, palpitations, abdominal pain, nausea, vomiting, diarrhea, back pain, or headaches. MD complaint: sore throat, difficulty swallowing Onset/Timin -: days(s) - Related Data Home Medications Medication Instructions Recorded Confirmed Sertraline [Zoloft] 75 mg PO DAILY 12/07/18 04/29/19 Spironolactone 25 mg PO DAILY 04/29/19 04/29/19 l-Norgest/E.estradiol-E.estrad 1 tab PO DAILY 04/29/19 04/29/19 [Seasonique 0.15-0.03-0.01 Tab] Previous Rx's Medication Instructions Recorded Acyclovir 400 mg PO TID 10 Days #350 ml 05/25/22 HYDROcodone/APAP 5-325MG [Clifford 1 tab PO Q6HR PRN 3 Days #12 tab 05/25/22 5-325] Allergies Allergy/AdvReac Type Severity Reaction Status Date / Time Penicillins Allergy Rash/Hives Verified 05/25/22 17:34 quetiapine [From Seroquel] Allergy Rash/Hives Verified 05/25/22 17:34 Review of Systems ROS Statement: Those systems with pertinent positive or pertinent negative responses have been documented in the HPI. ROS Other: All systems not noted in ROS Statement are negative. Past Medical History Past Medical History: No Reported History Additional Past Medical History / Comment(s): PCOS History of Any Multi-Drug Resistant Organisms: None Reported Past Surgical History: No Surgical Hx Reported Additional Past Surgical History / Comment(s): nasal Past Psychological History: Bipolar Smoking Status: Never smoker Past Alcohol Use History: Occasional Past Drug Use History: None Reported General Exam Limitations: no limitations General appearance: alert, in distress Head exam: Present: atraumatic, normocephalic, normal inspection ENT exam: Present: other (Posterior pharyngeal erythema. 3+ tonsillar hypertrophy bilaterally. 2 areas of small exudates with diffuse vesicular lesions.) Neck exam: Present: full ROM, lymphadenopathy Respiratory exam: Present: normal lung sounds bilaterally. Absent: respiratory distress, wheezes, rales, rhonchi, stridor Cardiovascular Exam: Present: regular rate, normal rhythm, normal heart sounds. Absent: systolic murmur, diastolic murmur, rubs, gallop, clicks Neurological exam: Present: alert, oriented X3, CN II-XII intact Psychiatric exam: Present: normal affect, normal mood Skin exam: Present: warm, dry, intact, normal color. Absent: rash Course Vital Signs 05/25/22 17:31 Temperature 97.9 F Pulse Rate 58 L Respiratory 18 Rate Blood Pressure 113/75 O2 Sat by Pulse 100 Oximetry Medical Decision Making - Medical Decision Making This is a 27-year-old female who presents to the emergency department for a sore throat. Patient tested negative for strep throat yesterday. Physical examination does reveal vesicular lesions, and HSV is a very likely a cause of her symptoms. We did discuss testing for mono, COVID, and influenza, however the patient declined. Will send rx for liquid acyclovir to her pharmacy to take instead of the Valtrex she has, as she cannot swallow the large pills with her throat swelling. I did contact multiple [facility] pharmacies and found one who did have this in stock. However, none of them had liquid pain medication in stock. Because these pills are smaller, patient states that she will try to swallow them. Mariposa was then sent her pharmacy as well. Recommended she purchase [id number] liquid Tylenol and ibuprofen as well for the pain. Instructed her to discontinue the doxycycline for now. Strict return parameters discussed, in that if the swelling progresses or she has difficulty breathing, she is to return immediately. Return precautions reviewed in depth, the patient is instructed to return to the emergency department with any new, worsening, or concerning symptoms. Patient verbalized understanding. This case was discussed in detail with the attending ED physician. Presentation, findings, and treatment plan discussed in detail as well. Disposition Clinical Impression: Acute viral pharyngitis Disposition: HOME SELF-CARE Instructions (If sedation given, give patient instructions): Pharyngitis (ED), Oral Herpes Simplex Virus Infections (ED) Additional Instructions: Return to the emergency department with any new, worsening, or concerning symptoms. Specifically, if you have any difficulty breathing or the swelling continues to progress. Take the acyclovir as prescribed for 10 days. Take the Clifford sparingly when the pain is most severe, and otherwise use Tylenol and ibuprofen. Liquid versions can be purchased [id number] if needed. Prescriptions: Acyclovir 400 mg PO TID 10 Days #350 ml HYDROcodone/APAP 5-325MG [Clifford 5-325] 1 tab PO Q6HR PRN 3 Days #12 tab PRN Reason: Pain Is patient prescribed a controlled substance at d/c from ED?: No Referrals: Michelle Ac NPC [Primary Care Provider] - 1-2 days
[2022-05-25 20:25] VITALS: BP 107/66; PULSE 71; RESP 16; TEMP 98.2
== END 2022-05-25 20:25 | disposition home or self-care (01) ==
LOC: EC 16:48
DX: J02.9 Acute pharyngitis, unspecified (principal); Z88.0 Allergy status to penicillin; Z88.8 Allergy status to other drugs, medicaments and biological substances
CPT/HCPCS: 99283

== ENCOUNTER 2022-08-21 17:33 | Emergency (ER) | payer BC ==
[2022-08-21 17:44] VITALS: TEMP 98.2
--- NOTE | 2022-08-21 18:19 | ED ---
General Adult HPI - General Chief complaint: Anxiety Stated complaint: Panic Attack,Dizzy Time Seen by Provider: 08/21/22 17:50 Source: patient, family, EMS Mode of arrival: EMS Limitations: no limitations - History of Present Illness Initial comments: Dictation was produced using [employer] dictation software. please excuse any grammatical, word or spelling errors. Chief Complaint: 27-year-old female presents emergency department for anxiety reaction History of Present Illness: Patient 27-year-old female she has past medical history anxiety. She was at work when she became overwhelmed. Patient started to breathe heavy had chest pain. 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 EMS was called patient is brought to the emergency department. Patient states that this is mainly in emergency department she is gone back to normal. She denies any history of heart conditions. Patient had a similar episode several months ago which was identical to today's situation. Patient feels fine and wants to be discharge. Is at the bedside states that she appears to be well. The ROS documented in this emergency department record has been reviewed and confirmed by me. Those systems with pertinent positive or negative responses have been documented in the HPI. All other systems are other negative and/or noncontributory. PHYSICAL EXAM: General Impression: Alert and oriented x3, not in acute distress HEENT: Normocephalic atraumatic, extra-ocular movements intact, pupils equal and reactive to light bilaterally, mucous membranes moist. Cardiovascular: Heart regular rate and rhythm Chest: Able to complete full sentences, no retractions, no tachypnea Abdomen: abdomen soft, non-tender, non-distended, no organomegaly Musculoskeletal: Pulses present and equal in all extremities, no peripheral edema Motor: no focal deficits noted Neurological: CN II-XII grossly intact, no focal motor or sensory deficits noted Skin: Intact with no visualized rashes Psych: Normal affect and mood ED course: I 27-year-old female presents emergency department for clinical presentation consistent with anxiety reaction. Vital signs upon arrival are within acceptable limits. Patient's well-appearing at the bedside. Patient observed in emergency part for one hour and 15 minutes. Reevaluated bedside at 6:55 PM found to be stable medical condition. EKG is unremarkable. Patient is well-appearing. Patient be discharged. EKG interpretation: Ventricular rate 49, sinus rhythm,. Interval 131, QRS 95, QTC 374. No WA prolongation, no QTC prolongation, no ST or T-wave changes noted. Overall, this EKG is unremarkable - Related Data Home Medications Medication Instructions Recorded Confirmed Sertraline [Zoloft] 75 mg PO DAILY 12/07/18 04/29/19 Spironolactone 25 mg PO DAILY 04/29/19 04/29/19 l-Norgest/E.estradiol-E.estrad 1 tab PO DAILY 04/29/19 04/29/19 [Seasonique 0.15-0.03-0.01 Tab] Previous Rx's Medication Instructions Recorded Acyclovir 400 mg PO TID 10 Days #350 ml 05/25/22 HYDROcodone/APAP 5-325MG [[place] 1 tab PO Q6HR PRN 3 Days #12 tab 05/25/22 5-325] Allergies Allergy/AdvReac Type Severity Reaction Status Date / Time Penicillins Allergy Rash/Hives Verified 08/21/22 17:44 quetiapine [From Seroquel] Allergy Rash/Hives Verified 08/21/22 17:44 Review of Systems ROS Statement: Those systems with pertinent positive or pertinent negative responses have been documented in the HPI. ROS Other: All systems not noted in ROS Statement are negative. Past Medical History Past Medical History: No Reported History Additional Past Medical History / Comment(s): PCOS History of Any Multi-Drug Resistant Organisms: None Reported Past Surgical History: No Surgical Hx Reported Additional Past Surgical History / Comment(s): nasal Past Psychological History: Bipolar Smoking Status: Never smoker Past Alcohol Use History: None Reported Past Drug Use History: None Reported General Exam Limitations: no limitations Course Vital Signs 08/21/22 17:35 Temperature 98.2 F Pulse Rate 72 Respiratory 22 Rate Blood Pressure 111/72 O2 Sat by Pulse 98 Oximetry Disposition Clinical Impression: Anxiety reaction Disposition: HOME SELF-CARE Instructions (If sedation given, give patient instructions): Generalized Anxiety Disorder (ED) Is patient prescribed a controlled substance at d/c from ED?: No Referrals: Sylvain Khoury MD [Primary Care Provider] - 1-2 days Time of Disposition: 18:45
[2022-08-21 18:56] VITALS: BP 110/68; PULSE 58; RESP 18
== END 2022-08-21 18:54 | disposition home or self-care (01) ==
LOC: EC 17:33
DX: F41.1 Generalized anxiety disorder (principal); Z88.0 Allergy status to penicillin; Z88.8 Allergy status to other drugs, medicaments and biological substances
CPT/HCPCS: 93005; 99285